=== PATIENT | female | born 1935 | race Caucasian/White ===

== ENCOUNTER 2017-01-08 11:50 | Emergency (ER) | payer MEDICARE ==
[2017-01-08 11:58] VITALS: BP 152/70; PULSE 64; RESP 18; TEMP 97.8
--- NOTE | 2017-01-08 12:37 | ED ---
General Adult HPI - General Chief complaint: Skin/Abscess/Foreign Body Stated complaint: right foot 2nd toe irritation Time Seen by Provider: 01/08/17 12:18 Source: patient, RN notes reviewed Mode of arrival: ambulatory Limitations: no limitations - History of Present Illness Initial comments: Patient 81-year-old female who presents emergency room today with chief complaint of a chief complaint of possible infection to the right second toe. Patient states she noticed some redness just everted. States she's been soaking appears that she had a callus to the posterior aspect. States she was picking up. She denies any complaints associated symptoms. Patient denies any recent fever, chills, shortness of breath, chest pain, back pain, abdominal pain , nausea or vomiting, numbness or tingling, dysuria or hematuria, constipation or diarrhea, headaches or visual changes, or any other complaints. - Related Data Home Medications Medication Instructions Recorded Confirmed ALPRAZolam [Xanax] 0.25 mg PO BID PRN 07/11/15 07/11/15 Bimatoprost [Lumigan .01% Ophth 1 drop BOTH EYES HS 07/11/15 07/11/15 Soln] Citalopram Hydrobromide [CeleXA] 20 mg PO DAILY 07/11/15 07/11/15 Hydrochlorothiazide 25 mg PO AC-LUNCH 07/11/15 07/11/15 Insulin Detemir [Levemir] 10 unit SQ DAILY PRN 07/11/15 07/11/15 Lisinopril [Zestril] 2.5 mg PO HS 07/11/15 07/11/15 Omeprazole [PriLOSEC] 20 mg PO ACHS 07/11/15 07/11/15 Simvastatin [Zocor] 40 mg PO HS 07/11/15 07/11/15 glipiZIDE/METFORMIN HCL 2 tab PO BID 07/11/15 07/11/15 [glipiZIDE/METFORMIN HCL 5-500 mg] Previous Rx's Medication Instructions Recorded Aspirin 81 mg PO DAILY #30 chewable 07/12/15 Levothyroxine Sodium [Levoxyl] 112 mcg PO DAILY #30 tab 07/12/15 Metoprolol Succinate (ER) [Toprol 12.5 mg PO DAILY #30 tab.er.24h 07/12/15 XL] amLODIPine [Norvasc] 5 mg PO DAILY #30 tab 07/12/15 Cephalexin [Keflex] 500 mg PO Q12HR 10 Days 01/08/17 Allergies Allergy/AdvReac Type Severity Reaction Status Date / Time No Known Allergies Allergy Verified 01/08/17 11:58 Review of Systems ROS Statement: Those systems with pertinent positive or pertinent negative responses have been documented in the HPI. ROS Other: All systems not noted in ROS Statement are negative. Past Medical History Past Medical History: Diabetes Mellitus, Hyperlipidemia, Hypertension, Thyroid Disorder History of Any Multi-Drug Resistant Organisms: None Reported Past Surgical History: Hysterectomy, Orthopedic Surgery Additional Past Surgical History / Comment(s): right shoulder Past Psychological History: No Psychological Hx Reported Smoking Status: Never smoker Past Alcohol Use History: None Reported Past Drug Use History: None Reported - Past Family History Father Family Medical History: Cancer Additional Family Medical History / Comment(s): Father at a young age from stomach cancer. Mother Family Medical History: Coronary Artery Disease (CAD) Additional Family Medical History / Comment(s): Mother from coronary artery disease. Brother(s) Family Medical History: Diabetes Mellitus, Liver Disease Additional Family Medical History / Comment(s): She has one brother that at age 52 with history of alcoholism and noncompliance with diabetes. She does not have any sisters. Daughter(s) Additional Family Medical History / Comment(s): She has 2 daughters and 1 son with no major medical problems. General Exam - General Exam Comments Initial Comments: General: The patient is awake and alert, in no distress, and does not appear acutely ill. Neck: The neck is supple, there is no tenderness or JVD. Cardiovascular: There is a regular rate and rhythm. No murmur, rub or gallop is appreciated. Respiratory: Lungs are clear to auscultation, respirations are non-labored, breath sounds are equal. No wheezes, stridor, rales, or rhonchi. Musculoskeletal/skin: Patient does have increased redness and mild swelling to the second digit consistent with paronychia. There is some mild epigastric streaking going up the right foot. Patient shows full range motion. Sensation intact. Pulses equal bilateral 2+. Neurological: A&O x 3. CN II-XII intact, There are no obvious motor or sensory deficits. Coordination appears grossly intact. Speech is normal. Skin is warm and dry and no rashes or lesions are noted. Psychiatric: Normal mood and affect. Limitations: no limitations Course Vital Signs 01/08/17 11:53 Temperature 97.8 F Pulse Rate 64 Respiratory 18 Rate Blood Pressure 152/70 O2 Sat by Pulse 99 Oximetry Medical Decision Making - Medical Decision Making Patient will be started on antibiotic. Advised follow-up the family doctor to have area rechecked. Advised return if symptoms increase or worsen. Disposition Clinical Impression: Paronychia Disposition: HOME SELF-CARE Condition: Good Instructions: Paronychia (ED) Additional Instructions: Please follow the family doctor in the next 2 days to have area rechecked. Please use antibiotic as prescribed. Please return to emergency room symptoms increase or worsen or for any other concerns. Prescriptions: Cephalexin [Keflex] 500 mg PO Q12HR 10 Days Referrals: Sha Nguyen MD [Primary Care Provider] - 1-2 days Time of Disposition: 12:36
== END 2017-01-08 12:42 | disposition home or self-care (01) ==
LOC: EC 11:50
DX: L03.031 Cellulitis of right toe (principal); E11.9 Type 2 diabetes mellitus without complications; E78.5 Hyperlipidemia, unspecified; I10 Essential (primary) hypertension; E07.9 Disorder of thyroid, unspecified; Z79.4 Long term (current) use of insulin; Z79.899 Other long term (current) drug therapy
CPT/HCPCS: 99282

== ENCOUNTER → 2017-01-24 | Outpatient (CLI) | payer MEDICARE ==
--- NOTE | 2017-01-24 11:32 | MR ---
EXAMINATION TYPE: MR brain wo con DATE OF EXAM: 01/24/2017 COMPARISON: MRI brain March 01, 2016. HISTORY: Memory loss TECHNIQUE: Multiplanar, multisequence imaging of the brain and brainstem is performed without IV cont rast. FINDINGS: Diffusion weighted images demonstrate no evidence of a recent infarct or other diffusion abnormality. There is no worrisome extra-axial fluid collection. There is ventricular and sulcal prominence consis tent with diffuse cerebral atrophy. There are multifocal areas of T2 hyperintensity seen throughout t he white matter bilaterally. 2 adjacent lesions right posterior frontal lobe alvarado radiata are stabl e with largest measuring 9 mm on long axis on axial image 20. I estimate approximately 10-20 scattere d small lesions. Midline structures demonstrate normal morphology. The craniocervical junction appears within normal limits. Normal vascular flow voids are present. There is dominant and tortuous distal left vertebral artery as well as tortuous course to basilar artery. The visualized sinuses are clear and the globes are intact. IMPRESSION: There is mild to moderate diffuse cerebral atrophy and mild chronic small vessel ischemic change redemonstrated. No significant change from prior MRI is identified.
== END | disposition home or self-care (01) ==
LOC: RADMRIMAIN 10:45
PROVIDERS: ATTEND Psychiatry & Neurology Neurology
DX: I67.82 Cerebral ischemia (principal); G31.9 Degenerative disease of nervous system, unspecified
CPT/HCPCS: 70551

== ENCOUNTER → 2017-07-17 | Outpatient (CLI) | payer MEDICARE, MEDICAID ==
--- NOTE | 2017-07-17 09:57 | XR ---
EXAMINATION TYPE: XR Hip Complete RT DATE OF EXAM: 07/17/2017 COMPARISON: NONE HISTORY: Pain TECHNIQUE: 2 views submitted FINDINGS: There is no evidence of erosive change or acute fracture. There is a moderate to severe narrowing of the joint space. No erosive changes. Hypertrophic changes along the greater trochanter. Vascular calcifications in the pelvis. IMPRESSION: 1. No evidence of acute fracture or dislocation. 2. 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
--- NOTE | 2017-07-18 11:34 | MM ---
Reason for exam: screening (asymptomatic). Last mammogram was performed 2 years and 4 months ago. History: Patient is postmenopausal. Benign US RT VAD breast biopsy of the right breast, January 18, 2013. Took estrogen for 22 years. Physical Findings: A clinical breast exam by your physician is recommended on an annual basis and results should be correlated with mammographic findings. MG Screening Mammo w CAD Bilateral CC and MLO view(s) were taken. Prior study comparison: April 01, 2015, left breast MG 3d work up w/cad LT. March 19, 2015, bilateral MG screening mammo w CAD. The breast tissue is heterogeneously dense. This may lower the sensitivity of mammography. Finding: There are typically benign vascular calcifications in both breasts. No suspicious abnormality. No significant changes in finding since April 01, 2015 and March 19, 2015. ASSESSMENT: Benign, BI-RAD 2 RECOMMENDATION: Routine screening mammogram of both breasts in 1 year.
== END | disposition home or self-care (01) ==
LOC: RADMAMWWP 09:16
PROVIDERS: ATTEND Internal Medicine Geriatric Medicine
DX: Z12.31 Encounter for screening mammogram for malignant neoplasm of breast (principal); M16.11 Unilateral primary osteoarthritis, right hip
CPT/HCPCS: 73502; 77067

== ENCOUNTER 2017-08-17 03:19 | Emergency (ER) | payer MEDICARE, MEDICAID ==
[2017-08-17] MEDS ORDERED: METOCLOPRAMIDE 5 MG/ML 2 ML VIAL IVP STA (03:41)
[2017-08-17] MEDS ORDERED: SODIUM CHLORIDE 0.9% 1,000 ML IV STA (03:41)
[2017-08-17] MEDS ORDERED: RX INFO: IV CONTRAST WAS GIVEN 1 EACH MISC MISCELLANE PRN (03:41)
[2017-08-17] MEDS ORDERED: FAMOTIDINE 20 MG/2 ML VIAL IV STA (03:42)
--- NOTE | 2017-08-17 03:44 | ED ---
General Adult HPI - General Chief complaint: Abdominal Pain Stated complaint: abd pain Time Seen by Provider: 08/17/17 03:37 Source: patient, family, RN notes reviewed Mode of arrival: ambulatory Limitations: no limitations - History of Present Illness Initial comments: Patient is a pleasant 81-year-old female presenting to the emergency Department with complaints of epigastric discomfort. Patient had some mild discomfort throughout the day yesterday. Symptoms became more moderate prior to arrival. Patient did have an episode of nausea without vomiting. Nausea has resolved at this time. No constipation or diarrhea. No history of similar symptoms previously. No radiation of pain. No chest pain. - Related Data Home Medications Medication Instructions Recorded Confirmed ALPRAZolam [Xanax] 0.25 mg PO BID PRN 07/11/15 07/11/15 Bimatoprost [Lumigan .01% Ophth 1 drop BOTH EYES HS 07/11/15 07/11/15 Soln] Citalopram Hydrobromide [CeleXA] 20 mg PO DAILY 07/11/15 07/11/15 Hydrochlorothiazide 25 mg PO AC-LUNCH 07/11/15 07/11/15 Insulin Detemir [Levemir] 10 unit SQ DAILY PRN 07/11/15 07/11/15 Lisinopril [Zestril] 2.5 mg PO HS 07/11/15 07/11/15 Omeprazole [PriLOSEC] 20 mg PO ACHS 07/11/15 07/11/15 Simvastatin [Zocor] 40 mg PO HS 07/11/15 07/11/15 glipiZIDE/METFORMIN HCL 2 tab PO BID 07/11/15 07/11/15 [glipiZIDE/METFORMIN HCL 5-500 mg] Previous Rx's Medication Instructions Recorded Aspirin 81 mg PO DAILY #30 chewable 07/12/15 Levothyroxine Sodium [Levoxyl] 112 mcg PO DAILY #30 tab 07/12/15 Metoprolol Succinate (ER) [Toprol 12.5 mg PO DAILY #30 tab.er.24h 07/12/15 XL] amLODIPine [Norvasc] 5 mg PO DAILY #30 tab 07/12/15 Cephalexin [Keflex] 500 mg PO Q12HR 10 Days cap 01/08/17 Allergies Allergy/AdvReac Type Severity Reaction Status Date / Time No Known Allergies Allergy Verified 05/03/18 03:25 Review of Systems ROS Statement: Those systems with pertinent positive or pertinent negative responses have been documented in the HPI. ROS Other: All systems not noted in ROS Statement are negative. Constitutional: Denies: fever Eyes: Denies: eye pain ENT: Denies: ear pain Respiratory: Denies: cough, dyspnea Cardiovascular: Denies: chest pain Endocrine: Denies: fatigue Gastrointestinal: Reports: abdominal pain. Denies: vomiting Genitourinary: Denies: dysuria Musculoskeletal: Denies: back pain Skin: Denies: rash Neurological: Denies: weakness Past Medical History Past Medical History: Diabetes Mellitus, Hyperlipidemia, Hypertension, Thyroid Disorder History of Any Multi-Drug Resistant Organisms: None Reported Past Surgical History: Hysterectomy, Orthopedic Surgery Additional Past Surgical History / Comment(s): right shoulder Past Psychological History: No Psychological Hx Reported Smoking Status: Never smoker Past Alcohol Use History: None Reported Past Drug Use History: None Reported - Past Family History Father Family Medical History: Cancer Additional Family Medical History / Comment(s): Father at a young age from stomach cancer. Mother Family Medical History: Coronary Artery Disease (CAD) Additional Family Medical History / Comment(s): Mother from coronary artery disease. Brother(s) Family Medical History: Diabetes Mellitus, Liver Disease Additional Family Medical History / Comment(s): She has one brother that at age 52 with history of alcoholism and noncompliance with diabetes. She does not have any sisters. Daughter(s) Additional Family Medical History / Comment(s): She has 2 daughters and 1 son with no major medical problems. General Exam Limitations: no limitations General appearance: alert, in no apparent distress Head exam: Present: atraumatic Eye exam: Present: normal appearance, PERRL ENT exam: Present: normal oropharynx Neck exam: Present: normal inspection Respiratory exam: Present: normal lung sounds bilaterally Cardiovascular Exam: Present: regular rate, normal rhythm Expanded Peripheral pulses: 2+: Radial (R), Radial (L), Dorsalis Pedis (R), Dorsalis Pedis (L) GI/Abdominal exam: Present: soft. Absent: tenderness Extremities exam: Present: normal inspection. Absent: pedal edema, calf tenderness Neurological exam: Present: alert Psychiatric exam: Present: normal affect, normal mood Skin exam: Present: normal color Course Vital Signs 08/17/17 08/17/17 08/17/17 03:21 05:00 05:07 Temperature 97.5 F L Pulse Rate 72 68 Respiratory 20 18 Rate Blood Pressure 191/98 182/79 176/84 O2 Sat by Pulse 97 96 Oximetry - Reevaluation(s) Reevaluation #1: 08/17/17 05:01 Patient reexamined and feels much better following medications 08/17/17 05:41 Patient again reexamined and still feels symptom-free. Patient and daughter updated on results and need for follow-up. EKG Findings - EKG Comments: EKG Findings:: Normal sinus rhythm 66. ND 152. QRS 70. QT 424. QTC 444. Left axis. Inferior Q waves. No acute ST change. Medical Decision Making - Lab Data Result diagrams: 08/17/17 03:32 08/17/17 03:32 Lab Results 08/17/17 08/17/17 08/17/17 Range/Units 03:32 03:32 03:32 WBC 9.0 (3.8-10.6) k/uL RBC 4.25 (3.80-5.40) m/uL Hgb 11.1 L (11.4-16.0) gm/dL Hct 33.8 L (34.0-46.0) % MCV 79.7 L (80.0-100.0) fL MCH 26.1 (25.0-35.0) pg MCHC 32.8 (31.0-37.0) g/dL RDW 13.5 (11.5-15.5) % Plt Count 286 (150-450) k/uL Neutrophils % 63 % Lymphocytes % 28 % Monocytes % 6 % Eosinophils % 2 % Basophils % 0 % Neutrophils # 5.7 (1.3-7.7) k/uL Lymphocytes # 2.5 (1.0-4.8) k/uL Monocytes # 0.5 (0-1.0) k/uL Eosinophils # 0.1 (0-0.7) k/uL Basophils # 0.0 (0-0.2) k/uL PT (9.0-12.0) sec INR (<1.2) APTT (22.0-30.0) sec Sodium 140 (137-145) mmol/L Potassium 3.9 (3.5-5.1) mmol/L Chloride 102 (98-107) mmol/L Carbon Dioxide 24 (22-30) mmol/L Anion Gap 14 mmol/L BUN 25 H (7-17) mg/dL Creatinine 0.80 (0.52-1.04) mg/dL Est GFR (CKD-EPI)AfAm 80 (>60 ml/min/1.73 sqM) Est GFR (CKD-EPI)NonAf 70 (>60 ml/min/1.73 sqM) Glucose 226 H (74-99) mg/dL Calcium 9.4 (8.4-10.2) mg/dL Total Bilirubin 0.2 (0.2-1.3) mg/dL AST 18 (14-36) U/L ALT 16 (9-52) U/L Alkaline Phosphatase 106 (38-126) U/L Total Creatine Kinase 23 L (30-135) U/L CK-MB (CK-2) 1.0 (0.0-2.4) ng/mL CK-MB (CK-2) Rel Index 4.3 Troponin I <0.012 (0.000-0.034) ng/mL Total Protein 6.3 (6.3-8.2) g/dL Albumin 3.8 (3.5-5.0) g/dL Amylase 49 (30-110) U/L Lipase 194 (23-300) U/L Urine Color Urine Appearance (Clear) Urine pH (5.0-8.0) Ur Specific [place] (1.001-1.035) Urine Protein (Negative) Urine Glucose (UA) (Negative) Urine Ketones (Negative) Urine Blood (Negative) Urine Nitrite (Negative) Urine Bilirubin (Negative) Urine Urobilinogen (<2.0) mg/dL Ur Leukocyte Esterase (Negative) Urine RBC (0-5) /hpf Urine WBC (0-5) /hpf Hyaline Casts (0-2) /lpf Urine Mucus (None) /hpf 08/17/17 08/17/17 Range/Units 03:32 04:40 WBC (3.8-10.6) k/uL RBC (3.80-5.40) m/uL Hgb (11.4-16.0) gm/dL Hct (34.0-46.0) % MCV (80.0-100.0) fL MCH (25.0-35.0) pg MCHC (31.0-37.0) g/dL RDW (11.5-15.5) % Plt Count (150-450) k/uL Neutrophils % % Lymphocytes % % Monocytes % % Eosinophils % % Basophils % % Neutrophils # (1.3-7.7) k/uL Lymphocytes # (1.0-4.8) k/uL Monocytes # (0-1.0) k/uL Eosinophils # (0-0.7) k/uL Basophils # (0-0.2) k/uL PT 9.5 (9.0-12.0) sec INR 1.0 (<1.2) APTT 21.0 L (22.0-30.0) sec Sodium (137-145) mmol/L Potassium (3.5-5.1) mmol/L Chloride (98-107) mmol/L Carbon Dioxide (22-30) mmol/L Anion Gap mmol/L BUN (7-17) mg/dL Creatinine (0.52-1.04) mg/dL Est GFR (CKD-EPI)AfAm (>60 ml/min/1.73 sqM) Est GFR (CKD-EPI)NonAf (>60 ml/min/1.73 sqM) Glucose (74-99) mg/dL Calcium (8.4-10.2) mg/dL Total Bilirubin (0.2-1.3) mg/dL AST (14-36) U/L ALT (9-52) U/L Alkaline Phosphatase (38-126) U/L Total Creatine Kinase (30-135) U/L CK-MB (CK-2) (0.0-2.4) ng/mL CK-MB (CK-2) Rel Index Troponin I (0.000-0.034) ng/mL Total Protein (6.3-8.2) g/dL Albumin (3.5-5.0) g/dL Amylase (30-110) U/L Lipase (23-300) U/L Urine Color Light Yellow Urine Appearance Clear (Clear) Urine pH 5.0 (5.0-8.0) Ur Specific [place] 1.025 (1.001-1.035) Urine Protein Negative (Negative) Urine Glucose (UA) Negative (Negative) Urine Ketones Negative (Negative) Urine Blood Negative (Negative) Urine Nitrite Negative (Negative) Urine Bilirubin Negative (Negative) Urine Urobilinogen <2.0 (<2.0) mg/dL Ur Leukocyte Esterase Small H (Negative) Urine RBC <1 (0-5) /hpf Urine WBC 6 H (0-5) /hpf Hyaline Casts 1 (0-2) /lpf Urine Mucus Rare H (None) /hpf - Radiology Data Radiology results: report reviewed (Computed tomography scan of the abdomen pelvis shows nonspecific mild distention of the gallbladder. No stones. Nonspecific small splenic lesion.) Disposition Clinical Impression: Abdominal pain Disposition: HOME SELF-CARE Condition: Stable Instructions: Abdominal Pain (ED) Additional Instructions: Please follow-up with primary care physician in the next day or 2 for recheck. Have primary care physician review results from today and consider ultrasound of the gallbladder. Return for increased pain, fever, vomiting, worsening symptoms or other concerns. Is patient prescribed a controlled substance at d/c from ED?: No Referrals: Sha Nguyen MD [Primary Care Provider] - 1-2 days Time of Disposition: 05:41
[2017-08-17 03:53] LABS: Basophils % (A) 0 %; Eosinophils # (A) 0.1 k/uL (0-0.7); Eosinophils % (A) 2 %; HCT 33.8 % (34.0-46.0); HGB 11.1 gm/dL (11.4-16.0); Lymphocytes # (A) 2.5 k/uL (1.0-4.8); Lymphocytes % (A) 28 %; MCH 26.1 pg (25.0-35.0); MCHC 32.8 g/dL (31.0-37.0); MCV 79.7 fL (80.0-100.0); Mean Platelet Volume 7.3; Monocytes # (A) 0.5 k/uL (0-1.0); Monocytes % (A) 6 %; Neutrophils # (A) 5.7 k/uL (1.3-7.7); Neutrophils % (A) 63 %; Platelet Count 286 k/uL (150-450); RBC 4.25 m/uL (3.80-5.40); RDW 13.5 % (11.5-15.5)
[2017-08-17 04:05] LABS: Albumin 3.8 g/dL (3.5-5.0); Calcium 9.4 mg/dL (8.4-10.2); Potassium 3.9 mmol/L (3.5-5.1); Total Bilirubin 0.2 mg/dL (0.2-1.3); Total Protein 6.3 g/dL (6.3-8.2)
[2017-08-17 04:20] LABS: Creatine Kinase 23 U/L (30-135)
[2017-08-17 04:21] LABS: Prothrombin Time 9.5 sec (9.0-12.0)
[2017-08-17 04:34] LABS: Troponin I <0.012 ng/mL (0.000-0.034)
[2017-08-17] MEDS ORDERED: LABETALOL 5 MG/ML VIAL MDV IVP STA (04:39)
--- NOTE | 2017-08-17 04:53 | CT ---
EXAM: CT Abdomen and Pelvis With Intravenous Contrast CLINICAL HISTORY: ITS.REASON CT Reason: abdominal pain TECHNIQUE: Axial computed tomography images of the abdomen and pelvis with intravenous contrast. CTDI is 18.70 mGy and DLP is 714.10 mGy-cm. This CT exam was performed using one or more of the following dose reduction techniques: automated exposure control, adjustment of the mA and/or kV according to patient size, and/or use of iterative reconstruction technique. COMPARISON: None available FINDINGS: Liver: Normal. No focal lesion. Spleen: Nonspecific small hyperdensity in the spleen. Nonspecific small hypodense lesions also noted in the spleen. Gallbladder: Nonspecific mild distention of the gallbladder. No stones or biliary dilatation. Pancreas: Normal. No mass. Adrenal glands: Normal. No mass. Kidneys: Left greater than right peripelvic cysts. Small left renal cyst. No hydronephrosis or stone. No mass. Bowel: Diverticulosis without evidence of diverticulitis. The appendix is not visualized, but no CT evidence of acute appendicitis. No bowel obstruction or inflammation. Urinary bladder: Normal. No wall thickening or mass. Reproductive organs: Prior hysterectomy. Muscles: No mass. Subcutaneous tissues: Tiny fat-containing umbilical hernia. Peritoneal space: Normal. No free fluid. Lymph nodes: Nonspecific mildly prominent mesenteric lymph nodes which may be reactive. Vessels: Extensive atherosclerotic changes of the vasculature. No aneurysm or dissection. Bones: Prominent degenerative changes of the hips. Osteopenia. Degenerative changes of the spine. No acute fracture or bony lesion. Lung bases: Mild dependent atelectasis bilaterally. Trace pericardial fluid. Mild cardiomegaly. IMPRESSION: 1. Nonspecific mild distention of the gallbladder. No calcified gallstones identified. Further evaluation could be performed with ultrasound if clinically indicated. 2. Diverticulosis without evidence of diverticulitis. No bowel obstruction or inflammation. 3. Nonspecific small splenic lesions.
[2017-08-17 05:04] LABS: Appearance,Urine Clear (Clear); Bilirubin,Urine Negative (Negative); Blood,Urine Negative (Negative); Color,Urine Light Yellow; Glucose,Urine (UA) Negative (Negative); Hyaline Casts,Urine 1 /lpf (0-2); Ketones,Urine Negative (Negative); Leukocyte Esterase,Urine Small (Negative); Mucus,Urine Rare /hpf; Nitrite,Urine Negative (Negative); Protein,Urine Negative (Negative); RBC,Urine <1 /hpf (0-5); Specific Gravity,Urine 1.025 (1.001-1.035); Urobilinogen,Urine <2.0 mg/dL (<2.0); WBC,Urine 6 /hpf (0-5)
[2017-08-17 05:07] VITALS: RESP 18
[2017-08-17 05:58] VITALS: BP 157/68; PULSE 66; TEMP 98.1
== END 2017-08-17 05:57 | disposition home or self-care (01) ==
LOC: EC 03:19
DX: R10.13 Epigastric pain (principal); R11.0 Nausea; I10 Essential (primary) hypertension; E11.9 Type 2 diabetes mellitus without complications; E78.5 Hyperlipidemia, unspecified; Z79.899 Other long term (current) drug therapy; Z79.84 Long term (current) use of oral hypoglycemic drugs
CPT/HCPCS: 36415; 93005; 80053; 82150; 82550; 82553; 83690; 84484; 85025; 85610; 85730; 81001; 74177; 99284; 96374; 96375 ×2; 96361 ×2; J2765; Q9967

== ENCOUNTER → 2017-08-29 | Outpatient (CLI) | payer MEDICARE, MEDICAID ==
--- NOTE | 2017-08-29 09:22 | US ---
EXAMINATION TYPE: US abdomen complete DATE OF EXAM: 08/29/2017 COMPARISON: CT 08/17/2017 CLINICAL HISTORY: Abd Pain R10.9. EXAM MEASUREMENTS: Liver Length: 12.8 cm Gallbladder Wall: 0.2 cm CBD: 0.4 cm Spleen: 11.9 cm Right Kidney: 10.7 x 5.5 x 6.0 cm Left Kidney: 11.3 x 3.8 x 4.4 cm Pancreas: Obscured by bowel gas Liver: Difficult/limited visualization due to overlying bowel gas, visualized portions wnl Gallbladder: No stones or sludge visualized Evidence for sonographic Brown's sign: No CBD: wnl as visualized, distal portion obscured by bowel gas Spleen: Peripherally hyperechoic area visualized measuring 1.1 x 1.3 x 1.1 cm Right Kidney: No hydronephrosis. Cystic area visualized measuring 0.8 cm, probable renal sinus cyst. Left Kidney: No hydronephrosis. Multiple cystic areas visualized. Largest lower pole measuring 2.2 x 2.6 x 2.2 cm Upper IVC: wnl Abd Aorta: Atherosclerotic changes without AAA IMPRESSION: 1. Peripherally hyperechoic solitary splenic lesion measuring 1.3 cm. This is favored to represent a hemangioma or lymphangioma, however full characterization with three-phase abdominal CT is recommende d. 2. Left renal cyst and probable small right renal sinus cyst. 3. No sonographic evidence of cholelithiasis or acute cholecystitis.
== END | disposition home or self-care (01) ==
LOC: RADUSWWP 08:22
PROVIDERS: ATTEND Internal Medicine Geriatric Medicine
DX: D73.89 Other diseases of spleen (principal); N28.1 Cyst of kidney, acquired
CPT/HCPCS: 76700

== ENCOUNTER → 2017-11-06 | Outpatient (CLI) | payer MEDICARE, MEDICAID ==
--- NOTE | 2017-11-06 11:55 | US ---
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 Technique: Multiple sonographic images of the abdomen are obtained. FINDINGS: EXAM MEASUREMENTS: Liver Length: 14.7 cm Gallbladder Wall: 0.1 cm CBD: 0.2 cm Spleen: 9.9 cm Right Kidney: 9.1 x 4.7 x 4.4 cm Left Kidney: 10.4 x 3.6 x 3.5 cm Pancreas: Obscured by bowel gas Liver: wnl Gallbladder: Borderline distended, likely due to fasting state. No wall thickening, pericholecystic fluid, or shadowing calculi. Evidence for sonographic Brown's sign: No CBD: wnl Spleen: Several echogenic, nonvascular structures, for example, measuring 0.5 x 1.0 x .04 cm and 0.3 x 0.8 x 0.3 cm in the midpole. Right Kidney: No hydronephrosis. There is a small cortical cyst 0.5 x 0.5 x 0.4 cm Left Kidney: No hydronephrosis. There is an upper pole cyst 1.6 x 1.4 x 2.2 cm, lower pole cyst 2.0 x 1.0 x 1.9 cm Upper IVC: wnl Abd Aorta: wnl IMPRESSION: 1. Redemonstrated scattered small splenic lesions. These are echogenic and may represent small mj iomas. A six-month follow-up ultrasound or CT can be considered. 2. Continued borderline hydropic gallbladder. This may relate to fasting state. Clinically correlate. No findings of cholelithiasis or ancillary findings of acute cholecystitis.
== END | disposition home or self-care (01) ==
LOC: RADUSWWP 07:55
PROVIDERS: ATTEND Internal Medicine Geriatric Medicine
DX: D73.89 Other diseases of spleen (principal); K82.8 Other specified diseases of gallbladder
CPT/HCPCS: 76700

== ENCOUNTER 2019-01-04 12:53 | Day surgery (SDC) | payer MEDICARE, MEDICAID ==
[2019-01-03 09:02] VITALS: BMI 22.6
[~2019-01-04 12:53] MED LIST: DEXAMETHASONE SOD PHOSPHATE 10 MG/ML 1 ML VIAL IV ONE; LACTATED RINGERS 1,000 ML IV SCH; LIDOCAINE 1% 20 ML VIAL (10MG/ML) FOR IV START INTRADERMA PRN
[2019-01-04 13:32] VITALS: TEMP 98.9
[2019-01-04] MEDS ORDERED: LIDOCAINE 1% INJ 10MG/ML (20 ML MDV) ONE (13:53)
[2019-01-04] MEDS ORDERED: PROPOFOL 10 MG/ML 20 ML VIAL IV ONE (13:53)
[2019-01-04 13:59] LABS: Glucose,Whole Blood 129 mg/dL (75-99)
--- NOTE | 2019-01-04 14:13 | P.PCN ---
Date of Procedure: 01/04/19 Procedure(s) Performed: BRIEF HISTORY: Patient is a 83-year-old, pleasant, white female, scheduled for an upper endoscopy as a part of evaluation of long-standing history of GERD. She is on Prilosec 20 mg daily and well. She is scheduled for an upper endoscopy to rule out complicated reflux disease.. PROCEDURE PERFORMED: Esophagogastroduodenoscopy. PREOPERATIVE DIAGNOSIS: Long-standing history of GERD. IV sedation per anesthesia. PROCEDURE: After informed consent was obtained, the patient was brought into the endoscopy unit. IV sedation was administered by Anesthesia under continuous monitoring. Initially the Olympus GIF-140 video endoscope was inserted into the mouth. Esophagus intubated without any difficulty. It was gradually advanced into the stomach and duodenum and carefully examined. The bulb and the second part of the duodenum appeared normal. The scope at this time was withdrawn to the stomach, adequately insufflated with air, and upon careful examination, mucosa of the antrum, body, cardia and the fundus appeared normal. The scope was then withdrawn into the esophagus. The GE junction was located at 39 cm from the incisors. Small sliding Hiatal hernia noted. The esophagus appeared normal. There were no erosions or ulcerations seen and the patient tolerated the proce dure well. IMPRESSION: 1. Small sliding Hiatal hernia. 2. No evidence of esophagitis or Lamb's. RECOMMENDATIONS: The findings of this examination were discussed with the patient as well as a family. She was advised to continue with Prilosec 20 mg daily and follow antireflux measures..
[2019-01-04 14:34] VITALS: BP 148/76; PULSE 78; RESP 18
== END 2019-01-04 14:53 | disposition home or self-care (01) ==
LOC: ORWHC2ENDO 12:53
PROVIDERS: ATTEND Internal Medicine Gastroenterology
DX: K21.9 Gastro-esophageal reflux disease without esophagitis (principal); K44.9 Diaphragmatic hernia without obstruction or gangrene; I10 Essential (primary) hypertension; E78.5 Hyperlipidemia, unspecified; E11.9 Type 2 diabetes mellitus without complications; E07.9 Disorder of thyroid, unspecified; F41.9 Anxiety disorder, unspecified; F32.9 Major depressive disorder, single episode, unspecified; Z79.82 Long term (current) use of aspirin; Z79.899 Other long term (current) drug therapy
CPT/HCPCS: 43235; J2001; J2704

== ENCOUNTER 2021-03-03 02:36 | Emergency (ER) | payer MEDICARE, MEDICAID ==
[2021-03-03 02:51] VITALS: RESP 18; TEMP 98.7
[2021-03-03] MEDS ORDERED: TOPICAL SKIN ADHESIVE 1 EACH AMP TOPICAL ONE (04:10)
--- NOTE | 2021-03-03 04:11 | CT ---
EXAMINATION TYPE: CT brain cspine wo con DATE OF EXAM: 03/03/2021 COMPARISON: None HISTORY: fall CT DLP: 1358.4 mGycm Automated exposure control for dose reduction was used. Images obtained of the brain and cervical spine without contrast. There is cerebral cortical atrophy. There is no mass effect nor midline shift. There are small 1 cm f oci of increased density in the cortex of the right and left frontal lobes. Calvarium is intact. Skul l base is intact. There is normal aeration of the mastoid sinuses. Cervical vertebra have normal alignment. There is degenerative disc space narrowing throughout the ce rvical spine with spur formation. Posterior elements are intact. There is multilevel hypertrophic fac et arthropathy. Prevertebral soft tissues are intact. IMPRESSION: Cerebral atrophy. Small areas of acute parenchymal hemorrhage in the frontal lobes bilaterally. No ma ss effect. Spondylotic changes in the cervical spine. No fracture. Exam was discussed with emergency room attending staff at 4:15 AM.
[2021-03-03] MEDS ORDERED: DIPH,PERTUS(ACELL)TETVAC-LF 0.5 ML VIAL IM ONE (04:26)
[2021-03-03 04:53] VITALS: BP 144/65; PULSE 62
[2021-03-03 05:09] LABS: Basophils % (A) 0 %; Eosinophils # (A) 0.2 k/uL (0-0.7); Eosinophils % (A) 2 %; HCT 26.2 % (34.0-46.0); HGB 8.2 gm/dL (11.4-16.0); Hypochromasia Slight; Lymphocytes # (A) 2.6 k/uL (1.0-4.8); Lymphocytes % (A) 27 %; MCH 25.8 pg (25.0-35.0); MCHC 31.4 g/dL (31.0-37.0); MCV 82.3 fL (80.0-100.0); Mean Platelet Volume 7.3; Monocytes # (A) 0.4 k/uL (0-1.0); Monocytes % (A) 5 %; Neutrophils # (A) 6.1 k/uL (1.3-7.7); Neutrophils % (A) 64 %; Platelet Count 240 k/uL (150-450); RBC 3.19 m/uL (3.80-5.40); RDW 14.2 % (11.5-15.5); WBC 9.5 k/uL (3.8-10.6)
--- NOTE | 2021-03-03 05:18 | ED ---
Fall HPI - General Chief Complaint: Fall Stated Complaint: Fall, Head Injury Time Seen by Provider: 03/03/21 02:53 Source: EMS Mode of arrival: EMS Limitations: altered mental status - History of Present Illness Initial Comments: This patient is an 85-year-old woman with history of moderate underlying dementia who is reported to have fallen out of bed at her place of residence probably around 2 AM. Most of the history is from the patient's daughter who is at the bedside, as the patient does have dementia. The patient is denying pain. MD Complaint: fall -: hour(s) Fall From: out of bed When Fall Occurred: 1 hour [employer] Fall Witnessed: no Place Fall Occurred: home Loss of Consciousness: unsure Location: head Context: history of frequent falls Associated Symptoms: denies - Related Data Home Medications Medication Instructions Recorded Confirmed Bimatoprost [Lumigan .01% Ophth 1 drop BOTH EYES HS 07/11/15 01/04/19 Soln] Citalopram Hydrobromide [CeleXA] 20 mg PO DAILY 07/11/15 01/04/19 Insulin Detemir (Levemir) [Levemir] 10 unit SQ DAILY PRN 07/11/15 01/04/19 Omeprazole [PriLOSEC] 20 mg PO ACHS PRN 07/11/15 01/04/19 Simvastatin [Zocor] 40 mg PO HS 07/11/15 01/04/19 glipiZIDE/METFORMIN HCL 2 tab PO BID 07/11/15 01/04/19 [glipiZIDE/METFORMIN HCL 5-500 mg] hydroCHLOROthiazide 25 mg PO AC-LUNCH 07/11/15 01/04/19 lisinopriL [Zestril] 2.5 mg PO HS 07/11/15 01/04/19 Aspirin 81 mg PO DAILY PRN 01/03/19 01/04/19 Previous Rx's Medication Instructions Recorded Levothyroxine Sodium [Levoxyl] 112 mcg PO DAILY #30 tab 07/12/15 Metoprolol Succinate (ER) [Toprol 12.5 mg PO DAILY #30 tab.er.24h 07/12/15 XL] amLODIPine [Norvasc] 5 mg PO DAILY #30 tab 07/12/15 Allergies Allergy/AdvReac Type Severity Reaction Status Date / Time No Known Allergies Allergy Verified 03/03/21 02:51 Review of Systems ROS Statement: Those systems with pertinent positive or pertinent negative responses have been documented in the HPI. ROS Other: All systems not noted in ROS Statement are negative. Limitations: ROS unobtainable due to patients medical condition Cardiovascular: Denies: chest pain Musculoskeletal: Denies: back pain Neurological: Denies: headache Past Medical History Past Medical History: Dementia, Diabetes Mellitus, Eye Disorder, Hyperlipidemia, Hypertension, Thyroid Disorder Additional Past Medical History / Comment(s): states low Hgb, states high eye pressure History of Any Multi-Drug Resistant Organisms: None Reported Past Surgical History: Hysterectomy, Orthopedic Surgery Additional Past Surgical History / Comment(s): right shoulder Past Anesthesia/Blood Transfusion Reactions: No Reported Reaction Past Psychological History: Anxiety, Depression Past Alcohol Use History: None Reported Past Drug Use History: None Reported - Past Family History Father Family Medical History: Cancer Additional Family Medical History / Comment(s): Father at a young age from stomach cancer. Mother Family Medical History: Coronary Artery Disease (CAD) Additional Family Medical History / Comment(s): Mother from coronary artery disease. Brother(s) Family Medical History: Diabetes Mellitus, Liver Disease Additional Family Medical History / Comment(s): She has one brother that at age 52 with history of alcoholism and noncompliance with diabetes. She does not have any sisters. Daughter(s) Additional Family Medical History / Comment(s): She has 2 daughters and 1 son with no major medical problems. General Exam Limitations: altered mental status General appearance: alert, in no apparent distress Head exam: Present: normocephalic, other (There is an approximately 2.5 cm laceration to the left temporal area. No deformity.) Eye exam: Present: normal appearance, PERRL, EOMI. Absent: scleral icterus, conjunctival injection ENT exam: Present: mucous membranes dry, mucous membranes moist, TM's normal bilaterally Neck exam: Present: normal inspection, other (Cervical collar). Absent: tenderness Respiratory exam: Present: normal lung sounds bilaterally. Absent: respiratory distress, wheezes, rales, rhonchi, stridor, chest wall tenderness Cardiovascular Exam: Present: regular rate, normal rhythm, normal heart sounds. Absent: systolic murmur, diastolic murmur, rubs, gallop GI/Abdominal exam: Present: soft. Absent: distended, tenderness, guarding, rebound, mass Extremities exam: Present: normal inspection, full ROM, normal capillary refill. Absent: pedal edema, calf tenderness Back exam: Present: normal inspection Neurological exam: Present: alert, CN II-XII intact. Absent: oriented X3 (Patient is oriented to person), motor sensory deficit Skin exam: Present: warm, dry, normal color, other Course Vital Signs 03/03/21 03/03/21 02:45 04:52 Temperature 98.7 F Pulse Rate 63 62 Respiratory 18 18 Rate Blood Pressure 144/63 144/65 O2 Sat by Pulse 90 L 95 Oximetry Procedures - Laceration Laceration #1 Consent Obtained: verbal consent Indication: laceration Site: face Size (cm): 3 Description: linear Type of Sutures: other (Skin adhesive) Technique: other (Skin adhesive) Patient Tolerated Procedure: well, no complications Medical Decision Making - Medical Decision Making This patient is an 85-year-old woman who presents after apparently falling from bed to ground-level. No no loss consciousness. Patient's daughter is at bedside and states that she does appear to be at her baseline. The patient is sent for CT which does reveal 2 small areas of hemorrhage the bilateral frontal lobes. 1 cm. The laceration is closed using skin glue. Tetanus status was unknown and this is updated. Discussion with family about facilities with neurosurgery they would request to be transferred to [facility], but that facility is overcapacity. The patient's daughter does work at [facility] [employer] and requests that we call that facility which did accept transfer, as accepting physician. - Lab Data Result diagrams: 03/03/21 04:43 03/03/21 04:43 Lab Results 03/03/21 03/03/21 03/03/21 Range/Units 04:43 04:43 04:43 WBC 9.5 (3.8-10.6) k/uL RBC 3.19 L (3.80-5.40) m/uL Hgb 8.2 L (11.4-16.0) gm/dL Hct 26.2 L (34.0-46.0) % MCV 82.3 (80.0-100.0) fL MCH 25.8 (25.0-35.0) pg MCHC 31.4 (31.0-37.0) g/dL RDW 14.2 (11.5-15.5) % Plt Count 240 (150-450) k/uL MPV 7.3 Neutrophils % 64 % Lymphocytes % 27 % Monocytes % 5 % Eosinophils % 2 % Basophils % 0 % Neutrophils # 6.1 (1.3-7.7) k/uL Lymphocytes # 2.6 (1.0-4.8) k/uL Monocytes # 0.4 (0-1.0) k/uL Eosinophils # 0.2 (0-0.7) k/uL Basophils # 0.0 (0-0.2) k/uL Hypochromasia Slight PT 9.6 (9.0-12.0) sec INR 0.9 (<1.2) APTT 19.2 L (22.0-30.0) sec Sodium 141 (137-145) mmol/L Potassium 4.6 (3.5-5.1) mmol/L Chloride 110 H (98-107) mmol/L Carbon Dioxide 25 (22-30) mmol/L Anion Gap 6 mmol/L BUN 36 H (7-17) mg/dL Creatinine 0.82 (0.52-1.04) mg/dL Est GFR (CKD-EPI)AfAm 76 (>60 ml/min/1.73 sqM) Est GFR (CKD-EPI)NonAf 66 (>60 ml/min/1.73 sqM) Glucose 135 H (74-99) mg/dL Calcium 8.9 (8.4-10.2) mg/dL Disposition Clinical Impression: Cerebral hemorrhage following injury, Laceration Disposition: OTHER INSTITUTION NOT DEFINED Condition: Fair Is patient prescribed a controlled substance at d/c from ED?: No Referrals: Sha Nguyen MD [Primary Care Provider] - 1-2 days - Out of Hospital Transfer - Req. Specs Out of Hospital Transfer - Requested Specifics: Other Emergency Center
[2021-03-03 05:24] LABS: Calcium 8.9 mg/dL (8.4-10.2); Potassium 4.6 mmol/L (3.5-5.1)
[2021-03-03 05:37] LABS: INR 0.9 (<1.2); Prothrombin Time 9.6 sec (9.0-12.0)
[2021-03-03 05:43] LABS: Partial Thromboplastin Time 19.2 sec (22.0-30.0)
== END 2021-03-03 05:49 | disposition other institution (70) ==
LOC: EC 02:36
DX: S06.369A Traumatic hemorrhage of cerebrum, unspecified, with loss of consciousness of unspecified duration, initial encounter (principal); S06.330A Contusion and laceration of cerebrum, unspecified, without loss of consciousness, initial encounter; E11.9 Type 2 diabetes mellitus without complications; I10 Essential (primary) hypertension; E78.5 Hyperlipidemia, unspecified; Z79.899 Other long term (current) drug therapy; Z79.84 Long term (current) use of oral hypoglycemic drugs; Z23 Encounter for immunization; W06.XXXA Fall from bed, initial encounter; Y92.009 Unspecified place in unspecified non-institutional (private) residence as the place of occurrence of the external cause
CPT/HCPCS: 12051; 36415; 70450; 72125; 80048; 85025; 85610; 85730; 90471; 90715; 99285

== ENCOUNTER 2021-03-13 08:11 | Emergency (ER) | payer MEDICARE, MEDICAID ==
[2021-03-13] MEDS ORDERED: SODIUM CHLORIDE 0.9% 1,000 ML IV STA (08:24)
--- NOTE | 2021-03-13 08:29 | ED ---
General Adult HPI - General Stated complaint: fall Time Seen by Provider: 03/13/21 08:15 Source: patient, EMS, RN notes reviewed Mode of arrival: EMS Limitations: altered mental status, physical limitation - History of Present Illness Initial comments: Patient is an 85-year-old female presenting to the emergency department following reported fall. Details are limited. Patient reportedly did have a fall within the past couple of weeks with intercranial hemorrhage. Patient is reportedly only oriented 1. He should and is refusing to talk at this time. Patient reportedly has new ecchymosis and abrasions to left forehead from today. Patient does not express any complaints. Family reportedly has been having patient withhold medication other than Ativan. - Related Data Home Medications Medication Instructions Recorded Confirmed Bimatoprost [Lumigan .01% Ophth 1 drop BOTH EYES HS 07/11/15 01/04/19 Soln] Citalopram Hydrobromide [CeleXA] 20 mg PO DAILY 07/11/15 01/04/19 Insulin Detemir (Levemir) [Levemir] 10 unit SQ DAILY PRN 07/11/15 01/04/19 Omeprazole [PriLOSEC] 20 mg PO ACHS PRN 07/11/15 01/04/19 Simvastatin [Zocor] 40 mg PO HS 07/11/15 01/04/19 glipiZIDE/METFORMIN HCL 2 tab PO BID 07/11/15 01/04/19 [glipiZIDE/METFORMIN HCL 5-500 mg] hydroCHLOROthiazide 25 mg PO AC-LUNCH 07/11/15 01/04/19 lisinopriL [Zestril] 2.5 mg PO HS 07/11/15 01/04/19 Aspirin 81 mg PO DAILY PRN 01/03/19 01/04/19 Previous Rx's Medication Instructions Recorded Levothyroxine Sodium [Levoxyl] 112 mcg PO DAILY #30 tab 07/12/15 Metoprolol Succinate (ER) [Toprol 12.5 mg PO DAILY #30 tab.er.24h 07/12/15 XL] amLODIPine [Norvasc] 5 mg PO DAILY #30 tab 07/12/15 Allergies Allergy/AdvReac Type Severity Reaction Status Date / Time No Known Allergies Allergy Verified 03/03/21 02:51 Review of Systems ROS Statement: Those systems with pertinent positive or pertinent negative responses have been documented in the HPI. ROS Other: All systems not noted in ROS Statement are negative. Limitations: ROS unobtainable due to patients medical condition Past Medical History Past Medical History: Dementia, Diabetes Mellitus, Eye Disorder, Hyperlipidemia, Hypertension, Thyroid Disorder Additional Past Medical History / Comment(s): states low Hgb, states high eye pressure History of Any Multi-Drug Resistant Organisms: None Reported Past Surgical History: Hysterectomy, Orthopedic Surgery Additional Past Surgical History / Comment(s): right shoulder Past Anesthesia/Blood Transfusion Reactions: No Reported Reaction Past Psychological History: Anxiety, Depression Smoking Status: Never smoker Past Alcohol Use History: None Reported Past Drug Use History: None Reported - Past Family History Father Family Medical History: Cancer Additional Family Medical History / Comment(s): Father at a young age from stomach cancer. Mother Family Medical History: Coronary Artery Disease (CAD) Additional Family Medical History / Comment(s): Mother from coronary artery disease. Brother(s) Family Medical History: Diabetes Mellitus, Liver Disease Additional Family Medical History / Comment(s): She has one brother that at age 52 with history of alcoholism and noncompliance with diabetes. She does n ot have any sisters. Daughter(s) Additional Family Medical History / Comment(s): She has 2 daughters and 1 son with no major medical problems. General Exam Limitations: altered mental status, physical limitation General appearance: alert Head exam: Present: other (Ecchymosis and abrasions left forehead) Eye exam: Present: normal appearance, PERRL, EOMI ENT exam: Present: normal oropharynx Neck exam: Present: normal inspection. Absent: tenderness Respiratory exam: Present: normal lung sounds bilaterally Cardiovascular Exam: Present: regular rate, normal rhythm GI/Abdominal exam: Present: soft. Absent: tenderness Extremities exam: Present: normal inspection, full ROM. Absent: tenderness Back exam: Present: normal inspection. Absent: vertebral tenderness Neurological exam: Present: alert, altered, other (Limited ability to follow commands. No obvious focal deficit). Absent: motor sensory deficit (Limited exam.) Expanded Neurological exam: Present: protecting the airway, other (Nonverbal) Motor strength exam: RUE: 5, LUE: 5, RLE: 4, LLE: 4 Eye Response: (4) open spontaneously Motor Response: (5) localizes to pain Verbal Response: (1) no verbal response Psychiatric exam: Present: flat affect Skin exam: Present: normal color Course Vital Signs 03/13/21 08:12 Temperature 97.4 F L Pulse Rate 58 L Respiratory 17 Rate Blood Pressure 145/64 O2 Sat by Pulse 97 Oximetry EKG Findings - EKG Comments: EKG Findings:: Normal sinus rhythm with rate of 60. RI 164. QRS 70. QTc 460. QTC 460. Left axis. Inferior Q waves. Low voltage. No acute ST change. Medical Decision Making - Medical Decision Making Patient reevaluated and resting comfortably in bed. Daughter is present and states patient is at her baseline. She states she is not surprised the patient did not speak with me earlier however she is conversing with her as normal. Patient has had chronic ambulatory problems for months. Daughter is comfortable with patient discharge to rehab facility. - Lab Data Result diagrams: 03/13/21 08:54 03/13/21 08:54 Lab Results 03/13/21 03/13/21 03/13/21 Range/Units 08:54 08:54 08:54 WBC 6.1 (3.8-10.6) k/uL RBC 3.45 L (3.80-5.40) m/uL Hgb 8.9 L (11.4-16.0) gm/dL Hct 27.4 L (34.0-46.0) % MCV 79.4 L (80.0-100.0) fL MCH 25.8 (25.0-35.0) pg MCHC 32.5 (31.0-37.0) g/dL RDW 14.8 (11.5-15.5) % Plt Count 254 (150-450) k/uL MPV 7.4 Neutrophils % 54 % Lymphocytes % 31 % Monocytes % 7 % Eosinophils % 5 % Basophils % 0 % Neutrophils # 3.3 (1.3-7.7) k/uL Lymphocytes # 1.9 (1.0-4.8) k/uL Monocytes # 0.4 (0-1.0) k/uL Eosinophils # 0.3 (0-0.7) k/uL Basophils # 0.0 (0-0.2) k/uL Hypochromasia Slight Sodium 141 (137-145) mmol/L Potassium 4.4 (3.5-5.1) mmol/L Chloride 108 H (98-107) mmol/L Carbon Dioxide 25 (22-30) mmol/L Anion Gap 8 mmol/L BUN 21 H (7-17) mg/dL Creatinine 0.64 (0.52-1.04) mg/dL Est GFR (CKD-EPI)AfAm >90 (>60 ml/min/1.73 sqM) Est GFR (CKD-EPI)NonAf 82 (>60 ml/min/1.73 sqM) Glucose 157 H (74-99) mg/dL Calcium 8.7 (8.4-10.2) mg/dL Total Bilirubin 0.2 (0.2-1.3) mg/dL AST 23 (14-36) U/L ALT 15 (4-34) U/L Alkaline Phosphatase 109 (38-126) U/L Troponin I <0.012 (0.000-0.034) ng/mL Total Protein 6.0 L (6.3-8.2) g/dL Albumin 3.2 L (3.5-5.0) g/dL - Radiology Data Radiology results: report reviewed (Computed tomography scan of brain and cervical spine reveal no acute abnormality.), image reviewed (Chest and pelvic x-ray show no acute process) Disposition Clinical Impression: Fall Disposition: HOME SELF-CARE Condition: Stable Instructions (If sedation given, give patient instructions): Fall Prevention for Older Adults (ED), Head Injury (ED) Additional Instructions: Please follow-up with primary care physician being the week. Please evaluate for acute rehab/additional physical or occupational therapy. Return for in creased falls, change in mental status, weakness, worsening symptoms or other concerns. Is patient prescribed a controlled substance at d/c from ED?: No Referrals: Sha Nguyen MD [Primary Care Provider] - 1-2 days Time of Disposition: 09:45
[2021-03-13] MEDS ORDERED: FLUORESCEIN STRIPS 1 MG STRIP LEFT EYE ONE (08:43)
--- NOTE | 2021-03-13 08:57 | XR ---
EXAMINATION TYPE: XR pelvis AP view DATE OF EXAM: 03/13/2021 CLINICAL HISTORY: Pain after fall injury TECHNIQUE: A single AP view of the pelvis is obtained. COMPARISON: CT abdomen and pelvis August 17, 2017 FINDINGS: Osseous structures somewhat demineralized. No acute displaced pelvic fracture. Moderate to severe narrowing left hip joint with moderate to severe head neck collar spurring redemonstrated. Met allic artifact from right hip surgery now present, visualized portion unremarkable. Pubic symphysis i ntact. Sacroiliac joints are well-maintained. Overlying left pelvic phlebolith noted. IMPRESSION: There is no acute displaced pelvic fracture.
--- NOTE | 2021-03-13 08:58 | XR ---
EXAMINATION TYPE: XR chest 1V portable DATE OF EXAM: 03/13/2021 COMPARISON: Chest x-ray July 12, 2015 HISTORY: Pain after falling tree. TECHNIQUE: Single frontal view of the chest is obtained. FINDINGS: The osseous structures are demineralized. Metallic hardware from right shoulder surgery pa rtially imaged. Degenerative change left glenohumeral joint. Diminished inspiration. Cardiomegaly wit hout gross cirrhotic hepatic thoracic aorta redemonstrated. No new focal airspace opacity, pleural ef fusion, or pneumothorax seen. IMPRESSION: Diminished inspiration. Cardiomegaly without acute pulmonary process.
[2021-03-13 09:02] LABS: Basophils % (A) 0 %; Eosinophils # (A) 0.3 k/uL (0-0.7); Eosinophils % (A) 5 %; HCT 27.4 % (34.0-46.0); HGB 8.9 gm/dL (11.4-16.0); Hypochromasia Slight; Lymphocytes # (A) 1.9 k/uL (1.0-4.8); Lymphocytes % (A) 31 %; MCH 25.8 pg (25.0-35.0); MCHC 32.5 g/dL (31.0-37.0); MCV 79.4 fL (80.0-100.0); Mean Platelet Volume 7.4; Monocytes # (A) 0.4 k/uL (0-1.0); Monocytes % (A) 7 %; Neutrophils # (A) 3.3 k/uL (1.3-7.7); Neutrophils % (A) 54 %; Platelet Count 254 k/uL (150-450); RBC 3.45 m/uL (3.80-5.40); RDW 14.8 % (11.5-15.5); WBC 6.1 k/uL (3.8-10.6)
[2021-03-13 09:11] LABS: ALT 15 U/L (4-34); AST 23 U/L (14-36); African American GFR (CKD) >90 (>60 ml/min/1.73 sqM); Albumin 3.2 g/dL (3.5-5.0); Alkaline Phosphatase 109 U/L (38-126); Anion Gap 8 mmol/L; Blood Urea Nitrogen 21 mg/dL (7-17); Calcium 8.7 mg/dL (8.4-10.2); Carbon Dioxide 25 mmol/L (22-30); Chloride 108 mmol/L (98-107); Glucose 157 mg/dL (74-99); Non-African American GFR(CKD) 82 (>60 ml/min/1.73 sqM); Potassium 4.4 mmol/L (3.5-5.1); Sodium 141 mmol/L (137-145); Total Bilirubin 0.2 mg/dL (0.2-1.3)
--- NOTE | 2021-03-13 09:25 | CT ---
EXAMINATION TYPE: CT brain sandy turcios DATE OF EXAM: 03/13/2021 COMPARISON: Prior trauma CT 10 days ago HISTORY: Trauma. Fall. Headache and neck pain CT DLP: 1240.6 mGycm. Automated Exposure Control for Dose Reduction was Utilized. TECHNIQUE: CT scan of the head and cervical spine are performed without contrast. FINDINGS: There is no acute intracranial hemorrhage or midline shift identified. Mild to moderate v entricular and sulcal prominence redemonstrated. Mild to moderate low attenuation in the periventricu lar white matter redemonstrated. The calvarium is intact. The globes are intact and the visualized si nuses are clear. Cervical spine is visualized in its entirety from C1 through upper thoracic levels and demonstrates s table straightens alignment without evidence of acute fracture or dislocation. Prevertebral soft tis aston remains within normal limits. The C1-C2 articulation remains within normal limits on the coronal images. Vertebral body heights are maintained. Moderate to severe disc space narrowing C3-C4, C4-C5 , C6 and C7, C7-T1 levels redemonstrated with moderate multilevel anterior spurring. Posterior disc h erniation C4-C5 and C6-C7 level effaces anterior thecal sac similar to prior. Axial images redemonstrate multilevel bilateral facet arthropathy contributing to multilevel bilatera l neural foraminal narrowing. Thyroid gland is smaller atrophic. Lung apices not included. IMPRESSION: 1. There is no acute fracture or dislocation evident in the cervical spine. 2. No acute intracranial hemorrhage or midline shift is seen. No significant change from prior.
[2021-03-13 09:33] LABS: INR 0.9 (<1.2); Prothrombin Time 9.6 sec (9.0-12.0)
[2021-03-13 09:45] LABS: Partial Thromboplastin Time 19.2 sec (22.0-30.0)
[2021-03-13 10:35] VITALS: BP 140/78; PULSE 62; RESP 18; TEMP 98.1
== END 2021-03-13 10:00 | disposition home or self-care (01) ==
LOC: EC 08:11
DX: Z04.3 Encounter for examination and observation following other accident (principal); E11.9 Type 2 diabetes mellitus without complications; I10 Essential (primary) hypertension; E78.5 Hyperlipidemia, unspecified; Z79.899 Other long term (current) drug therapy; Z79.84 Long term (current) use of oral hypoglycemic drugs; W19.XXXA Unspecified fall, initial encounter
CPT/HCPCS: 70450; 71045; 72125; 72170; 80053; 84484; 85025; 85610; 85730; 93005; 96360; 99285